=== PATIENT | female | born 1970 | race Caucasian/White ===

== ENCOUNTER 2024-02-11 19:59 | Emergency (ER) | payer OTHER, SELFPAY ==
[2024-02-11 20:01] VITALS: BP 127/75
--- NOTE | 2024-02-11 21:04 | ED.GENMED ---
History of Present Illness
General
Chief Complaint: Skin Problem
Source: patient
Exam Limitations: none
Time Seen by Provider: 02/11/24 20:57
History of Present Illness
History of Present Illness:
See MDM
Past History
Past History
ED Past Medical History: Psychiatric
ED Past Surgical History: Orthopedic (right hand fracture repair)
Social History
Tobacco: Smoker
Alcohol: None
Personal:
Living: with family
Employment: Employed (clinical nursing instructor)
Family History
Family History: Other (reviewed and noncontributory)
Phy Exam
Physical Exam
Physical Exam:
See MDM
Course
Orders/Labs/Results
Orders:
Orders
02/11/24 21:02
Cephalexin Monohydrate [Keflex] 500 mg PO NOW STA
Ibuprofen [Motrin] 600 mg PO NOW STA
Vital Signs
Initial and Last Documented VS:
Initial Vital Signs
Temp Pulse Resp BP Pulse Ox
98.2 F 86 18 127/75 99
02/11/24 20:01 02/11/24 20:01 02/11/24 20:01 02/11/24 20:01 02/11/24 20:01
Last Documented Vital Signs
Temp Pulse Resp BP Pulse Ox
98.2 F 86 18 127/75 99
02/11/24 20:01 02/11/24 20:01 02/11/24 20:01 02/11/24 20:01 02/11/24 20:01
MDM/Problems Addressed
Differential Diagnosis Includes:
HPI and MDM Narrative:
53-year-old female presenting for evaluation of cellulitis to her right elbow. She scratched her elbow a few days ago. Due to the cellulitic changes, her PCP placed her on Bactrim. She took her first dose of Bactrim this evening and soon noted
fever afterwards. She did not take any Tylenol or Motrin prior to arrival and she is found to be afebrile here. She believes her tetanus is up-to-date.
On exam, she does have a scratch to her elbow without purulent discharge. There is surrounding cellulitis but no evidence to suggest septic arthritis. Given the cellulitis and subjective fevers while on Bactrim, will add Keflex as well
Physical exam
General: Well appearing and non-toxic
HEENT: protecting airway
Neck: appears supple
CV: No evidence of cyanosis
Resp: No accessory muscle use
Abd: Non-distended
Extremities: Abrasion to right elbow with surrounding cellulitic changes. No micromotion tenderness
Neuro: alert
Psych: Normal affect
Skin: Intact
Problems Addressed including Acute and Chronic Conditions affecting care:
1. Right arm cellulitis
Acuity: acute
Prognosis: stable
Details: Patient just started Bactrim. She is afebrile here. Will add Keflex. She states her tetanus is up-to-date
Differential Diagnosis (but not limited to): Cellulitis, abrasion, abscess
Testing considered: X-ray with there is no bony tenderness
Drug therapy (if applicable): OTC meds, please see d/c instruction regarding Rx drugs
Amount and/or Complexity of Data Reviewed
Clinical info obtained from: Patient
External data reviewed: N/A
Labs I independently reviewed (but not limited to): [N/A
Radiology: N/A
Pulse Ox: not hypoxic
EKG independently reviewed: N/A
Cement Or Concrete Finishing Supervisor: N/A
Critical Care: N/A
Risk of Complication:
Social Determinants of health: Good social support
Discussed with other providers: N/A
Escalation of Care includes Admit/Obs: After being observed in the Emergency Department, pt stable for discharge.
Occasional wrong word or 'sound a like' substitutions may have occurred due to the inherent limitations of voice recognition software. Read the chart carefully and recognize, using context, where substitutions have occurred.
*Critical Care Note
Total Time (30-74mins, 75-104mins- exclusive of procedures): Not Applicable
ED Attending Note
-
Portions of this chart may have been created with voice recognition software.� Occasional wrong word or��sound alike� substitutions may have occurred due to the inherent limitations of voice recognition software.
Discharge Plan
Departure
Patient Disposition: Home (Routine Discharge)
Date of Disposition: 02/11/24
Time of Disposition: 21:09
Patient with high blood pressure during this ER visit?: No
Discharge Problem:
Cellulitis
Instructions: Cellulitis (Skin Infection), Adult (DC)
Prescriptions:
New
cephalexin 500 mg tablet
500 mg PO BID 7 Days Qty: 14 0RF
No Action
Abilify
1 tab PO . DIRECTED
Lamictal
1 tab PO . DIRECTED
Activity Restrictions/Additional Instructions:
Watch for worsening signs of infection: fever over 100.5', increasing pain, red streaks around wound, swelling, or increasing drainage of pus. If any of these happen, return to ED promptly. Make sure that you take all your antibiotics as directed
and finish your prescription even if you feel better before the bottle is empty.
Please take the Keflex and the Bactrim together.
Interventions
Interventions:
*Risk Screen - Suicide Last Done: 02/11/24 20:01
ED-Skin Assessment Last Done: 02/11/24 21:05
Discharge Date and Time
Print Language: SAO TOMEAN
[2024-02-11] MEDS: KEFLEX 500 MG PO (21:24)
[2024-02-11] MEDS: MOTRIN 600 MG PO (21:24)
== END 2024-02-11 21:35 | disposition home or self-care (01) ==
LOC: EMR 19:59
PROVIDERS: EMERGENCY PHYSICIAN Student in an Organized Health Care Education/Training Program
DX: L03.113 Cellulitis of right upper limb (principal); F17.200 Nicotine dependence, unspecified, uncomplicated
CPT/HCPCS: 99283

== ENCOUNTER → 2024-06-16 10:04 | Outpatient (REF) | payer OTHER, SELFPAY | LOC: HWWDC 10:04 | PROVIDERS: ATTENDING PHYSICIAN Obstetrics & Gynecology Gynecology; FAMILY PHYSICIAN Physician Assistant | DX: Z12.31 Encounter for screening mammogram for malignant neoplasm of breast (principal) | CPT/HCPCS: 77063; 77067 ==